=== PATIENT | female | born 1995 | race Two or more races ===

== ENCOUNTER 2024-07-08 19:39 | Emergency (ER) | payer MEDICAID, SELFPAY ==
[2024-07-08 19:41] VITALS: BMI 22.4
[2024-07-08 19:54] VITALS: BP 104/67; PULSE 99; RESP 20; TEMP 37; O2SAT 95
--- NOTE | 2024-07-08 19:57 | EDNOTE_ITS ---
ED Fever RME/HPI General Chief Complaint: Fever Stated Complaint: FEVER, HEAD AND EYE PAIN Time Seen by Provider: 07/08/24 20:00 Source: patient Arrival date/time: 07/08/24 19:39 29-year-old female with no known medical history presents to the emergency room with a chief complaint of fever, congestion, body aches, headache, eye pain x 2 days Mode of arrival: ambulatory Limitations: no limitations Related Data Home Medications ?Medication ?Instructions ?Recorded ?Confirmed amoxicillin 500 mg tablet 500 mg PO QID 04/08/19 04/08/19 Previous Rx's ?Medication ?Instructions ?Recorded cyclobenzaprine 10 mg tablet 10 mg PO TID PRN muscle spasm #30 03/21/23 tabs dexamethasone 6 mg tablet 6 mg PO QDAY #7 tabs 03/21/23 ibuprofen 600 mg tablet 600 mg PO TID PRN pain #30 tabs 04/02/23 lidocaine 5 % topical patch 2 patch topical QDAY #15 ea 04/02/23 (Lidoderm) azithromycin 250 mg tablet See Rx Instructions PO .COMPLEX #6 03/22/24 (Zithromax Z-Aime) tabs Allergies Allergy/AdvReac Type Severity Reaction Status Date / Time No Known Allergies Allergy Verified 04/02/23 18:01 Review of Systems Review of Systems Systems Reviewed: All systems reviewed, normal except as documented Constitutional Constitutional: Reports system reviewed and no additional complaints, except as documented, Denies fatigue, Denies fever(s), Reports headache(s) and Denies weakness Eyes Eyes: Reports system reviewed and no additional complaints, except as documented, Denies blurry vision and Denies change in vision ENT Ears, Nose, Mouth, and Throat: Reports system reviewed and no additional complaints, except as documented, Reports otalgia, Reports headache(s), Reports nasal congestion, Denies throat swelling and Denies vertigo Cardiovascular Cardiovascular: Reports system reviewed and no additional complaints, except as documented, Denies chest pain, Denies dyspnea and Denies dyspnea on exertion Respiratory Respiratory: Reports system reviewed and no additional complaints, except as documented, Denies chest congestion, Reports cough, Denies dyspnea, Denies dyspnea on exertion and Denies wheezing Gastrointestinal Gastrointestinal: Reports system reviewed and no additional complaints, except as documented, Denies abdominal pain, Denies cramping, Denies nausea and Denies vomiting Genitourinary Genitourinary: Reports system reviewed and no additional complaints, except as documented Musculoskeletal Musculoskeletal: Reports system reviewed and no additional complaints, except as documented and Denies back pain Integumentary/Breasts Skin/Breast: Reports system reviewed and no additional complaints, except as documented and Denies wounds Neurologic Neurologic: Reports system reviewed and no additional complaints, except as do cumented, Denies confusion, Reports headache(s), Denies lack of coordination, Denies vertigo and Denies weakness Psychiatric Psychiatric: Reports system reviewed and no additional complaints, except as documented, Denies anxiety, Denies confusion, Denies depression, Denies paranoia, Denies suicidal ideation and Denies tactile hallucinations Endocrine Endocrine: Reports system reviewed and no additional complaints, except as documented and Denies fatigue Hematologic/Lymphatic Hematologic/Lymphatic: Reports system reviewed and no additional complaints, except as documented and Denies lymphadenopathy Allergic/Immunologic Allergic/Immunologic: Reports system reviewed and no additional complaints, except as documented, Denies throat swelling, Denies urticaria and Denies wheezing Past Medical History Past Medical History NEUROLOGIC: Negative Seizures CARDIAC: Negative Congestive Heart Failure RESPIRATORY: Negative Chronic Obstructive Pulmonary Disease (COPD) GENITOURINARY: Negative Renal Disease REPRODUCTIVE: Positive Previous Pregnancies ENDOCRINE: Negative Diabetes Mellitus Type 1 or Diabetes Mellitus Type 2 OTHER HISTORY: Negative Blood Transfusions or Blood Transfusion Reaction Family History FAMILY HISTORY: Negative Family Respiratory Disorders or Family Cardiac Disorders Surgical History SURGICAL: Positive Section Social History SMOKING STATUS: Never smoker Physical Exam General Limitations: no limitations General appearance: alert and in no apparent distress Head Head exam: atraumatic Eye Eye exam: Present normal appearance, PERRL and EOMI ENT ENT exam: Present normal exam, normal oropharynx and mucous membranes moist Neck Neck exam: Present normal inspection, full ROM and trachea midline Chest Chest inspection: Present normal inspection and symmetric chest wall rise Respiratory Respiratory exam: Present normal lung sounds bilaterally Cardiovascular Cardiovascular exam: Present regular rate, normal rhythm and normal heart sounds Abdominal Exam Abdominal exam: Present soft and normal bowel sounds Extremities Exam Extremities exam: Present normal inspection and full ROM Back Exam Back exam: Present normal inspection and full ROM Neurological Exam Neurological exam: Present alert, oriented X3 and CN II-XII intact Psychiatric Psychiatric exam: Present normal affect and normal mood Skin Skin exam: Present warm, dry, intact and normal color ED Exam General Limitations: Present no limitations General appearance: Present alert and in no apparent distress Head Head exam: Present atraumatic Eye Eye exam: Present normal appearance, PERRL and EOMI ENT ENT exam: Present normal exam, normal oropharynx and mucous membranes moist Neck Neck exam: Present normal inspection, full ROM and trachea midline Chest Chest inspection: Present normal inspection and symmetric chest wall rise Respiratory Respiratory exam: Present normal lung sounds bilaterally Cardiovascular Cardiovascular exam: Present regular rate, normal rhythm and normal heart sounds Abdominal Exam Abdominal exam: Present soft and normal bowel sounds Extremities Exam Extremities exam: Present normal inspection and full ROM Back Exam Back exam: Present normal inspection and full ROM Neurological Exam Neurological exam: Present alert, oriented X3 and CN II-XII intact Psychiatric Psychiatric exam: Present normal affect and normal mood Skin Skin exam: Present warm, dry, intact and normal color Course Quality Measures none Orders Category Date Time Status Bedside COVID-19 Antigen Test NOW Care 07/08/24 19:57 Completed Bedside Influenza A&B Antigen Test NOW Care 07/08/24 19:57 Completed XR chest 2V Stat Exams 07/08/24 19:57 Completed Vital Signs Vital signs: Vital Signs Temperature 98.6 F 07/08/24 19:54 Pulse Rate 99 07/08/24 19:54 Respiratory Rate 20 07/08/24 19:54 Blood Pressure 104/67 07/08/24 19:54 Pulse Oximetry (%) 95 07/08/24 19:54 Oxygen Delivery Method Room Air 07/08/24 19:54 O2 saturation 95% within normal limits Fever MDM Narrative MDM Narrative:: 29-year-old female with no known medical history presents to the emergency room with a chief complaint of fever, congestion, body aches, headache, eye pain x 2 days clinically the patient appears nontoxic and in no apparent distress. Physical examination shows clear bilateral lung sounds with no wheezing stridor or respiratory distress. Influenza A and COVID-19 test were completed and the patient tested positive for influenza A. Patient was discharged and educated to follow-up with primary care provider and return to the emergency room for any evidence of worsening signs or symptoms Patient data External records reviewed:: [facility] previous records Clinical information provided by:: patient Social determinants that could affect healthcare access:: none Patient has the following chronic illnesses:: No chronic illness How is presenting disease/condition affected by chronic disease/condition?: no chronic disease Evaluation data The following diagnostics were reviewed and interpreted by me:: lab results and radiology exam(s) Lab and/or radiology exams considered but not ordered:: Labs and radiology exams considered and ordered Interpretation Summary: Chest [id number]: Mild prominence left ventricle which may relate to mild pectus deformity No lobar pneumonia or pulmonary edema Upper thoracic levoscoliosis 12 degrees Impression: No pneumonia or pulmonary edema Medications / Prescriptions Medications or Prescriptions considered but not ordered:: No medication given Medication administrations:: No medication given Consultations Consultation(s) initiated? (list below): No Diagnosis Fever Differential Diagnosis: community acquired pneumonia, viral infection and influenza Most likely diagnosis given after review of the tests above:: Influenza Admission Indicated Admission indicated?: not indicated Admission Request Was there a request for admission?: No Disposition Plan Disposition Plan: Discharge Discharge Attestation Discharge Attestation: The patient and all family members were given an opportunity to ask questions and understood the discharge instructions. Discharge instructions specifically effects, indications for sooner follow up or return to the emergency department, and the expected course of current diagnosis. Patient condition: Stable Discharge Plan Plan Patient Disposition: HOME (Self Care) Disposition Comment: Stable Prescriptions/Referrals Prescriptions/Med Rec: No Action amoxicillin 500 mg Tablet 500 mg PO QID lidocaine [Lidoderm] 5 % adhesive patch,medicated 2 patch topical QDAY Qty: 15 0RF Rx Instructions: leave on most painful area for up to 12 hrs ibuprofen 600 mg tablet 600 mg PO TID PRN (Reason: pain) Qty: 30 0RF cyclobenzaprine 10 mg tablet 10 mg PO TID PRN (Reason: muscle spasm) Qty: 30 0RF dexamethasone 6 mg tablet 6 mg PO QDAY Qty: 7 0RF azithromycin [Zithromax Z-Aime] 250 mg tablet See Rx Instructions .ROUTE .COMPLEX Qty: 6 0RF Rx Instructions: For 250 mg dose pack: take 500 mg today (day 1), then 250 mg for 4 days (days 2-5) Referrals: Lainey García PA-C [Primary Care Provider] - In 1 week Problem List Clinical Impression: Influenza Patient/Caregiver Discharge Instructions Education Materials: The Flu (Influenza) Additional Instructions: Please follow-up with your primary care provider in the next 24 to 48 hours. For any evidence of worsening signs or symptoms please return to the emergency room immediately Print Language: Korean Stand Alone Forms: Sherice Award Info., Patient Portal Info Letter PA/PAULO Supervising Physician PA/REVIEW COORDINATOR Supervising Physician: Dr Hubbard
--- NOTE | 2024-07-08 19:57 | XR_ITS ---
Examination: PA lateral chest 2 views Technique: Upright PA lateral chest 2 views Exam date and time: July 08, 20242004 hrs. Comparison March 22, 2024 Indications: Fever headache today. Findings: Mild prominence left ventricle which may relate to mild pectus deformity No lobar pneumonia or pulmonary edema Upper thoracic levoscoliosis 12 degrees Impression: No pneumonia or pulmonary edema
== END 2024-07-08 22:27 | disposition home or self-care (01) ==
PROVIDERS: Emergency Provider Emergency Medicine; PCP Physician Assistant
DX: J11.1 Influenza due to unidentified influenza virus with other respiratory manifestations (principal)
CPT/HCPCS: 71046; 87400; 87811; 99283

== ENCOUNTER → 2024-11-09 | Outpatient (CLI) | payer MEDICAID, SELFPAY ==
--- NOTE | 2024-11-09 15:30 | XR_ITS ---
Examination: Retroperitoneal ultrasound, complete Technique: Multiple high resolution grayscale images of the retroperitoneum obtained, including kidneys and bladder. Exam date and time:November 09, 2024 1545 hours INDICATIONS: Bilateral flank pain 3 years FINDINGS: Right kidney 10.1 cm renal cortex 2.0 cm Minimal hydronephrosis Multiple right calculi, the largest 7 mm upper pole Left kidney 10.8 cm 22.7 cm Multiple calculi, the largest in the mid kidney 9 mm Moderate renal parenchymal scar formation No bladder mass or bladder calculi Contractured urinary bladder, bladder prevoid volume 77 cc IMPRESSION: Multiple bilateral renal calculi Minimal right hydronephrosis, if right ureteral calculus is a clinical consideration, consider CT stone study follow-up
--- NOTE | 2024-11-09 16:00 | XR_ITS ---
Examination: Transvaginal ultrasound of the pelvis, complete Technique: Transvaginal sonographic images pelvis performed using greenberg scale imaging Exam date and time: November 09, 2024 1604 hours INDICATIONS: Pelvic pain beginning 3 years ago FINDINGS: Uterus 9.2 cm endometrial stripe 1.0 cm No discrete uterine mass no intrauterine gestation Right ovary 3.0 cm arterial flow small follicles Left ovary 3.3 cm arterial flow small follicles IMPRESSION: No discrete uterine mass, no intrauterine gestation.
== END | disposition home or self-care (01) ==
PROVIDERS: PCP Physician Assistant; Referring Provider Physician Assistant; Visit Provider Physician Assistant
DX: N20.0 Calculus of kidney (principal); N13.30 Unspecified hydronephrosis
CPT/HCPCS: 76770; 76830

== ENCOUNTER 2024-12-17 10:21 | Emergency (ER) | payer MEDICAID, SELFPAY ==
[2024-12-17 10:22] VITALS: BMI 28.3
[2024-12-17 10:53] VITALS: BP 104/69; PULSE 78; RESP 16; TEMP 36.9; O2SAT 98; BMI 21.7
--- NOTE | 2024-12-17 11:06 | PD.EDRME ---
Rapid Medical Screening Exam E Arrival date/time: 12/17/24 10:21 This is a 29-year-old female that comes into the emergency room with complaints of nausea poor appetite abdominal pain and back pain. Patient states she has chronic back pain. Patient has been told that she has chronic degenerative disc disease. Patient currently being worked up by primary doctor for abdominal pain and back pain. Patient was also recently told that she had multiple kidney stones. Patient states that she is having urinary issues such as urgency and frequency but not urinating very much. I have greeted and performed a focused initial assessment of this patient. Initial appropriate labs ordered at this time. A comprehensive ED assessment and evaluation of the patient and analysis of all test and completion of medical decision making process will be conducted by additional ED provider. Chief Complaint: Abdominal Pain Time Seen by Provider: 12/17/24 10:36 Vital signs: Vital Signs Temperature 98.4 F 12/17/24 10:53 Pulse Rate 78 12/17/24 10:53 Respiratory Rate 16 12/17/24 10:53 Blood Pressure 104/69 12/17/24 10:53 Pulse Oximetry (%) 98 12/17/24 10:53 Oxygen Delivery Method Room Air 12/17/24 10:53
[2024-12-17 11:34] LABS: Collection Type, Urine Voided
[2024-12-17 11:41] LABS: Basophils % (Auto) 0 % (0-2.5); Eosinophils # (Auto) 0.1 Thou/mm3 (0.0-0.5); Eosinophils % (Auto) 2 % (0-10); Hematocrit 37.1 % (36.0-46.0); Hemoglobin 12.7 g/dL (12.0-16.0); Immature Granulocytes % (Auto) 0 % (0-0); Immature Granulocytes Auto 0.01 Thou/mm3 (0.00-0.00); Lymphocytes # (Auto) 1.9 Thou/mm3 (1.0-4.8); Lymphocytes % (Auto) 40 % (10-50); Mean Corpuscular HGB Conc 34.2 g/dl (31.0-37.0); Mean Corpuscular Hemoglobin 31.5 pg (25.0-35.0); Mean Corpuscular Volume 92 fL (80-100); Monocytes # (Auto) 0.3 Thou/mm3 (0.0-0.8); Monocytes % (Auto) 7 % (0-12); Neutrophils # (Auto) 2.4 Thou/mm3 (1.8-7.7); Neutrophils % (Auto) 50 % (37-80); Nucleated Red Blood Cell % 0 /100 WBC (0); Platelet Count 243 Thou/mm3 (140-440); RDW Standard Deviation 41.4 fL (36.4-46.3); Red Blood Count 4.03 Miln/mm3 (4.00-5.20); White Blood Count 4.7 Thou/mm3 (3.6-11.0)
[2024-12-17 12:02] LABS: HCG Qualitative,Urine Negative
[2024-12-17 12:04] LABS: Bilirubin,Urine Negative (Negative); Blood,Urine 1+ (Negative); Clarity,Urine Clear (Clear/Hazy); Color,Urine Colorless (Lt Yel-Yel); Culture Indicated,Urine Not Indicated; Glucose, Urine Negative (Negative); Ketones,Urine Negative (Negative); Leukocyte Esterase,Urine Negative (Negative); Nitrite,Urine Negative (Negative); PH,Urine 6.5 (5.0-7.0); Protein,Urine Negative (Neg - Trace); RBC,Urine 2 /hpf (0-3); Specific Gravity,Urine 1.011 (1.001-1.035); Squamous Epithelial Cell,Urine 2 /hpf (0-5); Urobilinogen,Urine Negative mg/dL (0.0-1.0); WBC,Urine < 1 /hpf (0-5)
[2024-12-17 12:09] LABS: Alanine Aminotransferase 13 U/L (10-49); Albumin, Serum 4.4 gm/dL (3.5-5.0); Albumin/Globulin Ratio 1.6 (1.2-2.2); Alkaline Phosphatase 86 U/L (46-116); Anion Gap 5 (7-16); Aspartate Amino Transferase 14 U/L (0-34); BUN/Creatinine Ratio 10 Ratio (12-20); Bilirubin,Total 0.7 mg/dL (0.3-1.2); Blood Urea Nitrogen 8 mg/dL (9-23); Chloride 108 mMol/L (98-107); Creatinine (Component) 0.8 mg/dL (0.6-1.3); Estimated Creatinine Clearance 91.7 mL/min (>60); Globulin 2.7 gm/dL (2.3-3.5); Glucose 90 mg/dL (74-106); Lipase 34 U/L (12-53); Osmolality,Calculated 279 (275-295); Potassium 3.9 mMol/L (3.4-5.1); Sodium 141 mMol/L (136-145); Total Protein 7.1 gm/dL (5.7-8.2); eGFR > 60 See Note
[2024-12-17 12:22] LABS: Amphetamine/Methamp Scrn,U Negative (Negative); Barbiturate Screen,Urine Negative (Negative); Benzodiazepines Screen,Urine Negative (Negative); Benzoylecgonine Screen, Ur Negative (Negative); Fentanyl Screen,Urine Negative (Negative); Opiate Screen,Urine Negative (Negative); THC Screen,Urine Negative (Negative)
--- NOTE | 2024-12-17 15:12 | PC.NURSE ---
CALLED FROM [facility] AND NO ANSWER. PT NOT FOUND INSIDE THE E.D. OR OUTSIDE
--- NOTE | 2024-12-17 15:24 | PC.NURSE ---
CALLED FROM [facility] AND NO ANSWER. PT NOT FOUND IN THE E.D. OR OUTSIDE
--- NOTE | 2024-12-17 15:31 | PC.NURSE ---
CALLED FROM [facility] AND NO ANSWER
== END 2024-12-17 15:31 | disposition left against medical advice (07) ==
LOC: SERX 11:27
PROVIDERS: Nurse Practitioner Family; Emergency Provider Emergency Medicine; PCP Physician Assistant
DX: M54.9 Dorsalgia, unspecified (principal)
CPT/HCPCS: 36415; 80053; 80307; 81001; 81025; 83690; 85025; 99281